=== PATIENT | female | born 1980 | race Caucasian/White ===

== ENCOUNTER 2017-10-06 11:08 | Outpatient (CLI) | payer OTHER ==
[~2017-10-06 11:08] MED LIST: NAPROSYN500 MG PO; NORCO 5/3251 TABLET PO; NORCO 7.5/321 TABLET PO; Tylenol Extra Streng PO; VALIUM5 MG PO
[2017-10-06 11:21] VITALS: BP 110/71
[2017-10-06 12:20] VITALS: BP 104/58
== END 2017-10-06 14:40 | disposition home or self-care (01) ==
LOC: LDRP-OP → 2WEST 11:09
DX: O36.8930 Maternal care for other specified fetal problems, third trimester, not applicable or unspecified (principal); O09.523 Supervision of elderly multigravida, third trimester; O99.333 Smoking (tobacco) complicating pregnancy, third trimester; F17.200 Nicotine dependence, unspecified, uncomplicated; Z3A.30 30 weeks gestation of pregnancy; Z83.3 Family history of diabetes mellitus; Z87.440 Personal history of urinary (tract) infections
CPT/HCPCS: 59025; G0378

== ENCOUNTER 2017-10-16 10:42 | Outpatient (CLI) | payer OTHER ==
[2017-10-16 10:57] VITALS: BP 111/65
[2017-10-16 15:02] LABS: AMPHETAMINE NEGATIVE (500 ng/mL); BARBITURATES NEGATIVE (200 ng/mL); BENZODIAZEPINES NEGATIVE (150 ng/mL); BUPRENORPHINE NEGATIVE (10 ng/mL); COCAINE NEGATIVE (150 ng/mL); METHADONE NEGATIVE (200 ng/mL); METHAMPHETAMINE NEGATIVE (500 ng/mL); OPIATES (MORPHINE) NEGATIVE (100 ng/mL); OXYCODONE NEGATIVE (100 ng/mL); PHENCYCLIDINE NEGATIVE (25 ng/mL); PROPOXYPHENE NEGATIVE (300 ng/mL); THC CANNABINOIDS NEGATIVE (50 ng/mL); TRICYCLIC ANTIDEPRESSANTS NEGATIVE (300 ng/mL)
[2017-10-16 15:48] VITALS: BP 123/70
== END 2017-10-16 16:57 | disposition home or self-care (01) ==
LOC: LDRP-OP 10:42 → 2WEST 10:43 → LDRP-OP 01-09 17:28
PROVIDERS: Advanced Practice Midwife
DX: O35.9XX0 Maternal care for (suspected) fetal abnormality and damage, unspecified, not applicable or unspecified (principal); O09.523 Supervision of elderly multigravida, third trimester; Z3A.31 31 weeks gestation of pregnancy
CPT/HCPCS: 59025; G0378; J7120

== ENCOUNTER 2017-12-07 08:07 | Inpatient (IN) | payer OTHER ==
[2017-12-07] VITALS (23 sets, daily range): BP systolic 100–160; BP diastolic 53–91
[~2017-12-07] VITALS: Ht 157.5 cm; Wt 75.7 kg
[2017-12-07 10:07] LABS: AMPHETAMINE NEGATIVE (500 ng/mL); BARBITURATES NEGATIVE (200 ng/mL); BENZODIAZEPINES NEGATIVE (150 ng/mL); BUPRENORPHINE NEGATIVE (10 ng/mL); COCAINE NEGATIVE (150 ng/mL); METHADONE NEGATIVE (200 ng/mL); METHAMPHETAMINE NEGATIVE (500 ng/mL); OPIATES (MORPHINE) NEGATIVE (100 ng/mL); OXYCODONE NEGATIVE (100 ng/mL); PHENCYCLIDINE NEGATIVE (25 ng/mL); PROPOXYPHENE NEGATIVE (300 ng/mL); THC CANNABINOIDS NEGATIVE (50 ng/mL); TRICYCLIC ANTIDEPRESSANTS NEGATIVE (300 ng/mL)
[2017-12-07 10:39] LABS: BASOPHIL (%) 0.3 % (0-1); EOSINOPHIL (%) 1.2 % (0-5); EOSINOPHIL COUNT 0.1 K/uL (0-0.3); HEMATOCRIT 32.5 % (36.0-46.0); IMMATURE GRANULOCYTE (%) 0.6 % (0.0-0.7); LYMPHOCYTE (%) 22.3 % (15-42); LYMPHOCYTE COUNT 2.4 K/uL (1.0-2.8); MCHC 33.8 G/DL (30.0-36.0); MCV 91.5 FL (83-99); MONOCYTE (%) 7.1 % (3-12); MONOCYTE COUNT 0.8 K/uL (0-0.8); NEUTROPHIL (%) 68.5 % (45-76); NEUTROPHIL COUNT 7.2 K/uL (1.8-6.4); PLATELET COUNT 202 K/uL (156-360); RBC DIS.WIDTH-CV 14.1 % (11.8-14.6); RBC DIS.WIDTH-SD 46.5 % (39-53); RED BLOOD COUNT 3.55 M/uL (3.80-5.20); WHITE BLOOD COUNT 10.6 K/uL (4.1-10.2)
[2017-12-08 00:16] VITALS: BP 116/58
[2017-12-08 01:16] VITALS: BP 100/58
[2017-12-08 02:52] VITALS: BP 122/59
[2017-12-08 06:36] LABS: BASOPHIL (%) 0.2 % (0-1); EOSINOPHIL (%) 0.6 % (0-5); EOSINOPHIL COUNT 0.1 K/uL (0-0.3); HEMATOCRIT 30.9 % (36.0-46.0); HEMOGLOBIN 10.1 G/DL (11.9-15.5); IMMATURE GRANULOCYTE (%) 0.4 % (0.0-0.7); LYMPHOCYTE (%) 23.7 % (15-42); MCH 30.3 PG (29.0-34.0); MCHC 32.7 G/DL (30.0-36.0); MCV 92.8 FL (83-99); MONOCYTE COUNT 0.8 K/uL (0-0.8); NEUTROPHIL (%) 69.1 % (45-76); NEUTROPHIL COUNT 8.6 K/uL (1.8-6.4); PLATELET COUNT 185 K/uL (156-360); RBC DIS.WIDTH-CV 14.2 % (11.8-14.6); RBC DIS.WIDTH-SD 47.8 % (39-53); RED BLOOD COUNT 3.33 M/uL (3.80-5.20); WHITE BLOOD COUNT 12.4 K/uL (4.1-10.2)
[2017-12-08 07:47] VITALS: BP 124/68
[2017-12-08 13:04] LABS: HEMOGLOBIN A1c (GLYCOHEMOGLOB) 5.9 % (Below 5.7)
[2017-12-08 15:51] VITALS: BP 134/70
[2017-12-09 07:31] VITALS: BP 118/58
[2017-12-09] MEDS ORDERED: DOCUSATE SODIU100 MG PO (09:30)
[2017-12-09] MEDS ORDERED: FERRO-TIME325 MG PO (09:31)
[2017-12-09] MEDS ORDERED: CAMILA0.35 MG PO (09:32)
== END 2017-12-09 11:30 | disposition home or self-care (01) | DRG 775 ==
LOC: LDRP-OP 08:07 → 2WEST 08:08 → LDRP-OP 08:26 → 2WEST 23:02 → LDRP-OP 01-09 17:16
PROVIDERS: Advanced Practice Midwife
PROC: 10907ZC Drainage of Amniotic Fluid, Therapeutic from Products of Conception, Via Natural or Artificial Opening (ICD-10-PCS; principal; 2017-12-07)
PROC: 3E033VJ Introduction of Other Hormone into Peripheral Vein, Percutaneous Approach (ICD-10-PCS; 2017-12-07)
PROC: 10E0XZZ Delivery of Products of Conception, External Approach (ICD-10-PCS; 2017-12-07)
PROC: 00HU33Z Insertion of Infusion Device into Spinal Canal, Percutaneous Approach (ICD-10-PCS; 2017-12-07)
PROC: 3E0R3BZ Introduction of Anesthetic Agent into Spinal Canal, Percutaneous Approach (ICD-10-PCS; 2017-12-07)
DX: O75.89 Other specified complications of labor and delivery (principal); O99.02 Anemia complicating childbirth; D62 Acute posthemorrhagic anemia; O99.334 Smoking (tobacco) complicating childbirth; F17.200 Nicotine dependence, unspecified, uncomplicated; Z3A.39 39 weeks gestation of pregnancy; Z37.0 Single live birth
CPT/HCPCS: 71045; 83036; 85025; 87086; C1755; J3010; J7120